=== PATIENT | male | born 1965 | race Caucasian/White ===

== ENCOUNTER 2018-12-08 13:25 | Outpatient (CLI) | payer OTHER ==
[2018-12-08] MEDS ORDERED: SUMA100T3 PO (15:27)
[2018-12-08] MEDS ORDERED: DICL100G19 TP (15:27)
[2018-12-08] MEDS ORDERED: [UNRECOGNIZED DRUG - OTHER] PO (15:27)
[2018-12-08] MEDS ORDERED: ACET650S21 PO (15:27)
[2018-12-08] MEDS ORDERED: ALBUTEROL SULFATE INH (15:27)
[2018-12-08] MEDS ORDERED: LORA0.5T PO (15:27)
== END 2018-12-08 23:59 | disposition home or self-care (01) ==
LOC: STAR 13:25
PROVIDERS: ATTEND Otolaryngology
DX: Z02.9 Encounter for administrative examinations, unspecified (principal)

== ENCOUNTER 2018-12-13 05:55 | Day surgery (SDC) | payer OTHER ==
[~2018-12-13] VITALS: Ht 177.8 cm; Wt 67.0 kg
[~2018-12-13 05:55] MED LIST: ACET650S21 PO; ALBUTEROL SULFATE INH; DICL100G19 TP; LORA0.5T PO; SUMA100T3 PO; [UNRECOGNIZED DRUG - OTHER] PO
[2018-12-13] MEDS ORDERED: LACTATED RINGERS 1,000 ML IV SCH (06:40)
[2018-12-13 06:41] VITALS: BP 127/72
[2018-12-13] MEDS ORDERED: MIDAZOLAM 1 MG/ML, 2ML ONE (07:05)
[2018-12-13] MEDS ORDERED: FENTANYL PF 250 MCG/5ML ONE (07:05)
[2018-12-13] MEDS ORDERED: EPINEPHRINE TOPICAL SOLN 1 MG/ML, 30ML ONE (07:15)
[2018-12-13] MEDS ORDERED: LIDOCAINE 1%-EPI 1:100K, 20ML ONE (07:15)
[2018-12-13] MEDS ORDERED: FLUORESCEIN SODIUM 500 MG/5 ML ONE (07:15)
[2018-12-13] MEDS ORDERED: BACITRACIN OINT 500U/GM, 15 GM ONE (07:15)
[2018-12-13] MEDS ORDERED: OXYMETAZOLINE NASAL SPRAY 0.05%, 15ML ONE (07:15)
[2018-12-13] MEDS ORDERED: GABAPENTIN 300 MG CAPSULE ONE ×3 (07:25→15:22)
[2018-12-13] MEDS ORDERED: ACETAMINOPHEN 500 MG TABLET ONE ×3 (07:25→15:22)
[2018-12-13] MEDS ORDERED: CLINDAMYCIN 150 MG/ML, 6ML ONE (07:40)
[2018-12-13] MEDS ORDERED: ROCURONIUM 10MG/ML,5ML ONE (07:42)
[2018-12-13] MEDS ORDERED: PROPOFOL 10 MG/ML, 20ML ONE (07:42)
[2018-12-13] MEDS ORDERED: GLYCOPYRROLATE 0.2MG/1ML, 5ML ONE (07:42)
[2018-12-13] MEDS ORDERED: DEXAMETHASONE 4 MG/ML, 1ML ONE (07:42)
[2018-12-13] MEDS ORDERED: NEOSTIGMINE 1 MG/ML, 10ML ONE (07:42)
[2018-12-13] MEDS ORDERED: OXYcodone 5 MG/5 ML ORAL.SOL UDC PO PRN (09:00)
[2018-12-13] MEDS ORDERED: HALOPERIDOL 5 MG/ML IV PRN (09:00)
[2018-12-13] MEDS ORDERED: HYDROmorphone 2 MG/ML, 1ML IVPush PRN (09:00)
[2018-12-13] MEDS ORDERED: PROMETHAZINE 25 MG/ML, 1ML IV PRN (09:00)
[2018-12-13] MEDS ORDERED: hydrALAzine 20 MG/ML, 1ML IV PRN (09:00)
[2018-12-13] MEDS ORDERED: ALBUTEROL SULFATE 2.5 MG/3 ML NPPB PRN (09:00)
[2018-12-13] MEDS ORDERED: LABETALOL 5MG/ML, 20ML IV PRN (09:00)
[2018-12-13] MEDS ORDERED: OXYcodone 5 MG/5 ML ORAL.SOL UDC ONE (09:35)
[2018-12-13] MEDS ORDERED: FENTANYL PF 100 MCG/2ML ONE ×2 (09:35→10:10)
[2018-12-13] MEDS: FENTANYL PF 100 MCG/2ML IV PRN ×3 (09:37→10:11)
[2018-12-13] MEDS ORDERED: HYDROcodone/APAP 5/325 TABLET PO PRN (11:30)
[2018-12-13] MEDS ORDERED: ONDANSETRON 2MG/ML, 2ML IVPush PRN (11:30)
[2018-12-13] MEDS ORDERED: morphine SULFATE 10 MG/ML, 1ML IVPush PRN (11:30)
[2018-12-13] MEDS ORDERED: ONDANSETRON 2MG/ML, 2ML ONE (11:32)
== END 2018-12-13 13:20 | disposition home or self-care (01) ==
LOC: OUT 05:55
PROVIDERS: ATTEND Otolaryngology
DX: J34.2 Deviated nasal septum (principal); J32.0 Chronic maxillary sinusitis; J32.2 Chronic ethmoidal sinusitis; H61.23 Impacted cerumen, bilateral; J45.909 Unspecified asthma, uncomplicated; Z88.8 Allergy status to other drugs, medicaments and biological substances; Z88.0 Allergy status to penicillin
CPT/HCPCS: 30520; 31259; 31267; 61782; 88304; 88311; J1100; J2250; J2270; J2405; J2704; J2710; J3010; J3490; J7120